=== PATIENT | male | born 1970 | race Caucasian/White ===

== ENCOUNTER 2021-07-09 07:59 | Outpatient (CLI) | payer BC, SELFPAY ==
[2021-07-09 12:10] LABS: Absolute Lymphocyte Count 1.75 X10^3/uL (0.83-4.51); Absolute Neutrophil Count 4.1 X10^3/uL (2.0-7.7); Basophil# 0.02 X10^3/uL; Basophil% 0.3 % (0-1); Eosinophil# 0.08 X10^3/uL; Eosinophils% 1.2 % (0-5); Hematocrit 45.9 % (40-54); Hemoglobin 15.4 g/dL (13.0-16.5); Lymphocyte # 1.75 X10^3/ul (0.83-4.51); Lymphocyte % 27.1 % (19-41); Mean Corp Hgb Conc 33.6 g/dL (32-36); Mean Corpuscular Hgb 29.7 pg (27.0-32.0); Mean Corpuscular Volume 88.4 fL (80-94); Monocyte% 7.8 % (0-10); NRBC Flagged by Analyzer 0 % (0-5); Neutrophil # 4.08 X10^3/uL (2.7-7.7); Neutrophil % 63.3 % (47-70); Platelet Count 284 K/mm3 (150-450); RBC Distribution Width SD 39.1 fl (35.1-43.9); Red Blood Count 5.19 M/mm3 (4.6-6.2); White Blood Count 6.5 K/mm3 (4.4-11.0)
[2021-07-09 12:28] LABS: Vitamin D,25 Hydroxy 22.4 ng/mL
[2021-07-09 12:30] LABS: Hemoglobin A1c 5.6 % (3.8-5.6)
[2021-07-09 12:41] LABS: ALB/GLOB Ratio 0.8 RATIO (0.9-2.4); AST(SGOT) 35 U/L (15-37); Alanine Aminotransfer ALT/SGPT 73 U/L (16-61); Albumin, Serum 3.9 g/dL (3.2-5.0); Alkaline Phosphatase 67 U/L (45-117); Anion Gap 6 (5-15); BUN 11 mg/dL (7-18); BUN/Creat Ratio 10.8 RATIO (10-20); Calcium,Total 9.2 mg/dL (8.5-10.1); Chloride 104 mmol/L (98-107); Cholesterol 200 mg/dL (200); Creatinine, Serum 1.02 mg/dL (0.70-1.30); EST Glomerular Filtration Rate 83 mL/min (>60); Est Glom Filt Rate - Afr Amer 100 mL/min (>60); Globulin 4.7 g/dL (2.2-4.2); Glucose 103 mg/dL (74-106); High Density Lipoprotein 40 mg/dL; Potassium 4.2 mmol/L (3.5-5.1); Protein, Total 8.6 g/dL (6.4-8.2); Sodium Level 135 mmol/L (136-145); Thyroid Stim Hormone (TSH) 0.82 uIU/mL (0.358-3.74); Triglycerides 197 mg/dL; Very Low Density Lipoprotein 39 mg/dL (5-40)
== END 2021-07-09 23:59 | disposition home or self-care (01) ==
LOC: BIMLAB 08:00
PROVIDERS: PCP Internal Medicine; Referring Provider Internal Medicine; Visit Provider Internal Medicine
DX: E55.9 Vitamin D deficiency, unspecified (principal); E66.3 Overweight; Z12.5 Encounter for screening for malignant neoplasm of prostate; Z13.220 Encounter for screening for lipoid disorders; Z13.1 Encounter for screening for diabetes mellitus
CPT/HCPCS: 36415; 80053; 80061; 82306; 83036; 84153; 84443; 85025; G0103

== ENCOUNTER 2021-07-13 12:55 | Outpatient (CLI) | payer BC, SELFPAY ==
--- NOTE | 2021-07-13 13:00 | ECHOCS_ITS ---
Reason For Study: Murmur Procedure This was a 2D Doppler, Color Flow transthoracic echocardiogram. Contrast injection was performed. Exam performed in department. Left Ventricle Normal LV size. Moderate concentric left ventricular hypertrophy. Left ventricular systolic function is normal. The estimated ejection fraction is 65 %. Stage 1 diastolic dysfunction. No regional wall motion abnormalities noted. Right Ventricle Normal RV size. Normal systolic function. Atria Normal left atrium. Normal right atrium. Mitral Valve Normal mitral valve. Tricuspid Valve Normal tricuspid valve. Mild tricuspid valve insufficiency. Aortic Valve Normal aortic valve. Pulmonic Valve Normal pulmonic valve. Great Vessels Normal aortic root. The pulmonary artery is normal size. Normal inferior vena cava. Pericardium/Pleural No pericardial effusion. Medication Diluted definity 2ml given slow IV push to enhance endocardial definition. MMode/2D Measurements & Calculations LVIDd: 3.7 cm IVSd: 1.4 cm Ao root diam: 3.6 cm LVIDs: 2.2 cm LVPWd: 1.4 cm RVDd: 3.8 cm FS: 41.2 % LAV(MOD-bp): 39.0 ml LVAd ap4: 27.5 cm2 SV(MOD-sp4): 53.1 ml LAV(MOD-bp) Indexed: 19.1 ml/m2 LVLd ap4: 7.9 cm LAV(MOD-sp2): 39.0 ml EDV(MOD-sp4): 77.2 ml LAV(MOD-sp4): 39.9 ml EDV(sp4-el): 81.0 ml LVAs ap4: 13.9 cm2 LVLs ap4: 7.0 cm ESV(MOD-sp4): 24.1 ml ESV(sp4-el): 23.5 ml EF(MOD-sp4): 68.8 % EF(sp4-el): 70.9 % SV(sp4-el): 57.4 ml LA A4 area: 15.4 cm2 LA dimension(2D): 4.0 cm RA A4 area: 10.5 cm2 Doppler Measurements & Calculations MV E max artemio: 58.7 cm/sec Lat Peak E' Artemio: 8.1 cm/sec Med Peak E' Artemio: 5.6 cm/sec MV A max artemio: 68.0 cm/sec E/E' lat: 7.3 E/E' med: 10.6 MV E/A: 0.86 Ao V2 max: 154.7 cm/sec LV V1 max: 149.1 cm/sec PA V2 max: 85.4 cm/sec Ao max P.6 mmHg LV V1 max P.9 mmHg Ao V2 mean: 103.0 cm/sec Ao mean P.8 mmHg Ao V2 VTI: 29.7 cm TR max artemio: 207.5 cm/sec TR max P.2 mmHg ECHO/Echo Complete W/ Contrast Interpretation Summary Normal LV size. Left ventricular systolic function is normal. The estimated ejection fraction is 65 %. Moderate concentric left ventricular hypertrophy. Stage 1 diastolic dysfunction. Mild tricuspid valve insufficiency. Contrast injection was performed. Ordering Physician: Katya Lara Referring Physician: Katya Lara Performed By: Rain English, BISI, RVT
== END 2021-07-13 23:59 | disposition home or self-care (01) ==
LOC: CVS 12:57
PROVIDERS: PCP Internal Medicine; Referring Provider Internal Medicine; Visit Provider Internal Medicine
DX: Q24.4 Congenital subaortic stenosis (principal)
CPT/HCPCS: 93306; Q9957; A4216; C8929

== ENCOUNTER → 2021-11-25 | Outpatient (CLI) | payer BC, SELFPAY ==
[2021-11-25 11:40] LABS: Bacteria 0 SEEN /hpf (None Seen); Mucous, Urine 0 SEEN /hpf (<or=2+); Red Blood Cells-Urine 0 SEEN /hpf (0-5); Squamous Epithelial Cells - UA 0 SEEN /hpf (0-5); White Blood Cells 0 SEEN /hpf (0-5)
[2021-11-25 13:35] LABS: HIV - WCH Non-Reactive (Nonreactive)
[2021-11-25 15:09] LABS: Color, Urine Yellow (Yellow); Glucose, Dipstick Normal (Normal); Ketone-Dipstick Negative (Negative); Leukocyte Esterase-Dipstick Negative /ul (Negative); Nitrite-Dipstick Negative (Negative); Occult Blood-Urine Negative /ul (Negative); Protein-Dipstick Negative (Negative); Specific Gravity, Urine 1.015 (1.002-1.030); Urine Bilirubin Dipstick Negative (Negative); Urine Clarity Clear (Clear); Urine Urobilinogen Normal (Normal); Urine pH 6.5 (5.0 - 8.0)
[2021-11-27 21:07] LABS: Chlamydia By Nucleic Acid AMP Negative (Negative)
[2021-11-28 07:45] LABS: Gonococcus By Nucleic Acid AMP Positive (Negative)
== END | disposition home or self-care (01) ==
LOC: BIMLAB 11:38
PROVIDERS: PCP Internal Medicine; Referring Provider Physician Assistant; Visit Provider Physician Assistant
DX: R36.9 Urethral discharge, unspecified (principal); R30.0 Dysuria; Z11.3 Encounter for screening for infections with a predominantly sexual mode of transmission
CPT/HCPCS: 36415; 81001; 86703; 87086; 87491; 87591

== ENCOUNTER → 2023-10-04 | Outpatient (CLI) | payer BC, SELFPAY ==
[2023-10-04 11:58] LABS: Absolute Lymphocyte Count 1.48 X10^3/uL (0.83-4.51); Absolute Neutrophil Count 2.8 X10^3/uL (2.0-7.7); Basophil# 0.03 X10^3/uL; Basophil% 0.6 % (0-1); Eosinophil# 0.15 X10^3/uL; Eosinophils% 3.1 % (0-5); Hematocrit 43.5 % (40-54); Hemoglobin 14.4 g/dL (13.0-16.5); Lymphocyte # 1.48 X10^3/ul (0.83-4.51); Lymphocyte % 30.2 % (19-41); Mean Corp Hgb Conc 33.1 g/dL (32-36); Mean Corpuscular Hgb 29.1 pg (27.0-32.0); Mean Corpuscular Volume 87.9 fL (80-94); Mean Platelet Vol. 11.3 fl (6.2-12.0); Monocyte% 8.2 % (0-10); NRBC Flagged by Analyzer 0 % (0-5); Neutrophil # 2.82 X10^3/uL (2.7-7.7); Neutrophil % 57.5 % (47-70); Platelet Count 236 K/mm3 (150-450); RBC Distribution Width SD 42.1 fl (35.1-43.9); Red Blood Count 4.95 M/mm3 (4.6-6.2); White Blood Count 4.9 K/mm3 (4.4-11.0)
[2023-10-04 12:24] LABS: Hemoglobin A1c 5.6 % (3.8-5.6)
[2023-10-04 12:49] LABS: ALB/GLOB Ratio 0.8 RATIO (0.9-2.4); AST(SGOT) 35 U/L (15-37); Alanine Aminotransfer ALT/SGPT 56 U/L (16-61); Albumin, Serum 3.7 g/dL (3.2-5.0); Alkaline Phosphatase 60 U/L (45-117); Anion Gap 9 (5-15); BUN 14 mg/dL (7-18); Calcium,Total 9.1 mg/dL (8.5-10.1); Chloride 104 mmol/L (98-107); Cholesterol 199 mg/dL (200); EST Glomerular Filtration Rate 84 mL/min (>60); Est Glom Filt Rate - Afr Amer 101 mL/min (>60); Globulin 4.5 g/dL (2.2-4.2); Glucose 103 mg/dL (74-106); High Density Lipoprotein 49 mg/dL; PSA,Total - Annual Screen 0.54 ng/mL (0.00-4.00); Potassium 4.1 mmol/L (3.5-5.1); Protein, Total 8.2 g/dL (6.4-8.2); Sodium Level 136 mmol/L (136-145); Thyroid Stim Hormone (TSH) 0.69 uIU/mL (0.358-3.74); Triglycerides 102 mg/dL; Very Low Density Lipoprotein 20 mg/dL (5-40)
[2023-10-05 21:07] LABS: Insulin Level 20.2 uIU/mL (2.6-24.9)
== END | disposition home or self-care (01) ==
LOC: BIMLAB 09:11
PROVIDERS: PCP Internal Medicine; Referring Provider Internal Medicine; Visit Provider Internal Medicine
DX: Z00.00 Encounter for general adult medical examination without abnormal findings (principal); E55.9 Vitamin D deficiency, unspecified; R73.9 Hyperglycemia, unspecified; E66.3 Overweight; Z12.5 Encounter for screening for malignant neoplasm of prostate
CPT/HCPCS: 36415; 80053; 80061; 82306; 83036; 83525; 84153; 84443; 85025; G0103

== ENCOUNTER → 2024-11-01 | Outpatient (CLI) | payer BC, SELFPAY ==
--- NOTE | 2024-11-01 10:34 | STEWCON_ITS ---
Reason For Study Reason For Study: Dyspnea On Exertion Stress Results Protocol: Vincent Protocol WITH DEFINITY Maximum Predicted HR: 169 bpm Target HR: 144 bpm % Maximum Predicted HR: 98 % DurationHeart Rate Stage (mm:ss) (bpm) BP Comment Baseline 76 134/90No Chest Pain; 3 ML Diluted Definity Vincent Protocol Stage I 3:00 131 138/84No Chest Pain Vincent Protocol Stage II 3:00 148 158/80No Chest Pain; Mild Dyspnea Vincent Protocol Stage III 3:00 166 170/78No Chest Pain; Moderate Dyspnea Recovery 104 148/80No Chest Pain; No Dyspnea Stress Duration: 9:00 mm:ss Maximum Stress HR: 166 bpm METS: 10 Baseline Echocardiogram Findings Stress Echo Wall motion Data Resting WM Intermediate WM Stress WM ECHO/Stress Test Echo W/Contrast Interpretation Summary Exercise stress echo. 53-year-old male with a history of hypertension. Rest EKG demonstrates normal sinus rhythm with a rate of 77 bpm T wave inversio ns noted in lead I and aVL. Resting blood pressure is 134/80 mmHg. Patient exercised according to regular Vincent protocol for total duration of 9 minutes the maximum heart rate attained was 169 bpm which was 100% max impacted heart rate the maximum workload was 10.4 metabolic equivalents. At rest there were no ST or T wave changes noted suggest ischemia. At peak exercise there was approximately [address] depression noted in lead III and V6 suggestive but not di agnostic of ischemia. In the immediate post recovery. These changes became more upright. No chest pain was noted mild to moderate dyspnea was noted. The peak blood pressure was 170/78 which was a good blood pressure response to exercise. Stress echocardiogram. Resting and stress echocardiogram were performed with Definity enhancement. The estimated ejection fraction was 65% at rest increasing to 75% with thickening of all leo and reduction in left ventr icular contractility. No new wall motion abnormalities were noted suggest ischemia. Conclusion: Exercise stress echo with Definity enhancement with no evidence of ischemia at a high workload. Nondiagnostic EKG changes noted. No angina present. Ordering Physician: Douglas Vo Referring Physician: Douglas Vo Performed By: Karla Rae, BISI, RVT
== END | disposition home or self-care (01) ==
LOC: CVS 10:32
PROVIDERS: PCP Internal Medicine; Referring Provider Internal Medicine Cardiovascular Disease; Visit Provider Internal Medicine Cardiovascular Disease
DX: R94.31 Abnormal electrocardiogram [ECG] [EKG] (principal)
CPT/HCPCS: 93017; 93350; Q9957; A4216; C8928

== ENCOUNTER → 2024-11-05 | Outpatient (CLI) | payer BC, SELFPAY ==
--- NOTE | 2024-11-05 08:01 | ECHOCS_ITS ---
Reason For Study Reason For Study: Dyspnea/SOB Procedure This was a 2D Doppler, Color Flow transthoracic echocardiogram. The study was technically difficult. Contrast injection was performed. Exam performed in department. Left Ventricle Normal LV size. Severe concentric left ventricular hypertrophy. Left ventricular systolic function is hyperdynamic. The estimated ejection fraction is 80 %. Resting LV gradient 10 mmHg. Valsalva LV gradient 75 mmHg. No regional wall motion abnormalities noted. Right Ventricle Normal RV size. Normal systolic function. Atria Normal left atrium. Normal right atrium. Mitral Valve Normal mitral valve. Systolic anterior motion of the mitral valve. Mild (1+) eccentric mitral valve insufficiency. Tricuspid Valve Normal tricuspid valve. Aortic Valve Trisinus/trileaflet aortic valve. Pulmonic Valve The pulmonic valve is not well visualized. Great Vessels Normal aortic root. The pulmonary artery is normal size. Inferior vena cava collapse with respiration. Pericardium/Pleural No pericardial effusion. Medication 22 gauge I.V. with prn adaptor inserted into right arm. Diluted definity 2ml given slow IV push to enhance endocardial definition. MMode/2D Measurements & Calculations LVIDd: 4.0 cm IVSd: 1.6 cm Ao root diam: 3.9 cm LVIDs: 2.1 cm LVPWd: 1.8 cm RVDd: 3.7 cm FS: 46.6 % LAV(MOD-bp): 55.8 ml LVAd ap4: 35.9 cm2 SV(MOD-sp4): 93.1 ml LAV(MOD-bp) Indexed: 26.7 ml/m2 LVLd ap4: 9.6 cm SI(MOD-sp4): 44.6 ml/m2 LAV(MOD-sp2): 54.8 ml EDV(MOD-sp4): 107.8 ml LAV(MOD-sp4): 50.7 ml EDV(sp4-el): 113.6 ml LVAs ap4: 10.8 cm2 LVLs ap4: 7.5 cm ESV(MOD-sp4): 14.7 ml ESV(sp4-el): 13.3 ml EF(MOD-sp4): 86.4 % EF(sp4-el): 88.3 % SV(sp4-el): 100.4 ml LA A4 area: 19.0 cm2 LA dimension(2D): 4.4 cm TAPSE: 2.5 cm Time Measurements MV dec time: 0.26 sec Doppler Measurements & Calculations MV E max artemio: 78.7 cm/sec Lat Peak E' Artemio: 6.5 cm/sec Med Peak E' Artemio: 6.5 cm/sec MV A max artemio: 75.5 cm/sec E/E' lat: 12.2 E/E' med: 12.2 MV E/A: 1.0 MV V2 max: 113.6 cm/sec MV P1/2t max artemio: 115.5 cm/sec Ao V2 max: 170.3 cm/sec MV max P.2 mmHg MV P1/2t: 90.6 msec Ao max P.6 mmHg MV V2 mean: 54.0 cm/sec Ao V2 mean: 130.8 cm/sec MV mean P.5 mmHg MV dec slope: 373.5 cm/sec2 Ao mean P.5 mmHg MV V2 VTI: 32.8 cm MVA(P1/2t): 2.4 cm2 Ao V2 VTI: 34.8 cm LV V1 max: 137.4 cm/sec PA V2 max: 77.6 cm/sec LV V1 max P.6 mmHg ECHO/Echo Complete W/ Contrast Interpretation Summary Normal LV size. Left ventricular systolic function is hyperdynamic. The estimated ejection fraction is 80 %. Mild (1+) eccentric mitral valve insufficiency. Resting LV gradient 10 mmHg. Valsalva LV gradient 75 mmHg. Severe concentric left ventricular hypertrophy. Systolic anterior motion of the mitral valve. Ordering Physician: Douglas Vo Referring Physician: Douglas Vo Performed By: Tim Joshi RCS
--- OUTSIDE RECORDS SUMMARY | 2024-11-05 08:37 | XMS RPT_ITS | CCD ---
Author Organization [facility] Care Team Providers Care Transit Department Clerk Name Role Phone Dr. Katya Lara Attending Provider [phone] KARIME Soto Attending Provider Dr. Parvez Gates Attending Provider [phone] Dr. Katya Lara Primary Care Provider Dr. Katya Lara Primary Care Provider Dr. Katya Lara Referring Provider [phone] KARIME Dee Attending Provider Unavailab hay Lara MD, Dr. Aldana Primary Care Provider [phone] Dr. Katya Lara MD Attending Provider Dr. Katya Lara MD Referring Provider Dr. Douglas Vo MD Attending Provider Katya Lara Attending Unavailable Katya Lara Primary Care Unavailable Katya Lara Primary Care Unavailable Katya Lara Referring Unavailable Douglas Vo Attending Unavailable Katya Lara Attending Unavailable Katya Lara Primary Care Unavailable Katya Lara Primary Care Unavailable Parvez Gates Attending Unavailable Katya Lara Attending Unavailable Katya Lara Primary Care Unavailable Douglas Vo Attending Unavailable Katya Lara Primary Care Unavailable Douglas Vo Referring Unavailable Katya Lara Primary Care Unavailable Douglas Vo Referring Unavailable Douglas Vo Attending Unavailable Medications Current Medications Medication Drug Class(es) Dates Sig (Normalized) Sig (Original) aspirin 81 mg oral tablet (1 source) Platelet Aggregation Inhibitor, Nonsteroidal Anti-inflammatory Drug Start: 10-01-2024 take 1 tablet by mouth once daily Aspirin 81 mg tablet Active 81 mg PO daily 90 3 October 01, 2024 12:00am hydroCHLOROthiazide 12.5 mg / losartan potassium 50 mg oral tablet (4 sources) Thiazide Diuretic, Angiotensin [address] Start: 02-29-2024 End: 06-26-2024 Losartan-Hydroc hlorothiazide 50-12.5 mg tablet Active 1 {tbl} PO daily 90 3 June 26, 2024 10:16am metoprolol tartrate 25 mg oral tablet (2 sources) beta-Adrenergic Ct Start: 10-01-2024 Metoprolol Tartrate 25 mg tablet Active 12.5 mg PO daily 90 0 October 01, 2024 12:00am Completed/Discontinued Medications Medication Drug Class(es) Dates Sig (Normalized) Sig (Original) cefixime 400 mg oral capsule (3 sources) Cephalosporin Antibacterial Start: 11-30-2021 End: 07-05-2022 take 1 capsule by mouth once daily Cefixime 400 mg capsule Discontinued 800 mg PO DAILY 2 0 November 30, 2021 12:00am July 05, 2022 9:28am Start: 11-30-2021 take 800 mg by mouth once roselia y Cefixime Active 800 MG PO DAILY 2 November 30, 2021 12:00am hydroCHLOROthiazide 12.5 mg / lisinopril 10 mg oral tablet (4 sources) Thiazide Diuretic, Angiotensin Converting Enzyme Inhibitor Start: 09-26-2023 End: 02-29-2024 Lisinopril-Hydrochlorothiazi de 10-12.5 mg tablet Discontinued 1 {tbl} PO DAILY 90 1 December 28, 2023 10:14am February 29, 2024 9:30am imiquimod 50 mg/ml topical cream (12 sources) Start: 06-16-2021 End: 09-26-2023 Imiquimod 5 % cream in packe t Discontinued 1 NMA TOPICAL .COMPLEX as needed July 05, 2022 9:28am September 26, 2023 1:09pm 1 applic topically Three times weekly; PRN; triamcinolone acetonide 1 mg/ml topical cream (4 sources) Corticosteroid Start: 09-26-2023 End: 10-01-2024 Triamcinolone Acetonide 0.1 % cream Discontinued 1 NMA TOPICAL TWICE A DAY as needed November 16, 2023 8:04am October 01, 2024 8:31am Apply thin layer to the affected areas, twice daily x 10 to 14 days. Problems Active Problems Problem Classification Problem Date Documented Date Episodic/Chronic Cardiac and circulatory congenital anomalies (5 sources) Subaortic stenosis; Translations: [Congenital subaortic stenosis] Chronic Essential hypertension (4 sources) Hypertensive disorder; Translations: [Essential (primary) hypertension] Onset: 5 09-26-2023 Chronic Genitourinary symptoms and ill-defined conditions (2 sources) Urethral discharge, unspecified; Translations: [Urethral discharge] Episodic Immunizations and screening for infectious disease (1 source) Encounter for screening for infections with a predominantly sexual mode of transmission; Translations: [Screening examination for venereal disease] Episodic Nutritional deficiencies (6 sources) Vitamin D deficiency; Translations: [Vitamin D deficiency, unspecified] Onset: Chronic Other lower respiratory disease (4 sources) Dyspnea on exertion; Translations: [Other forms of dyspnea] 10-01-2024 Episodic Other lower respiratory disease (2 sources) Other forms of dyspnea; Translations: [Other forms of dyspnea] Onset: 5 Episodic Other non-traumatic joint disorders (6 sources) Pain in right knee; Translations: [Right knee pain] Episodic Other nutritional; endocrine; and metabolic disorders (4 sources) Overweight; Translations: [Overweight] 06-16-2021 Episodic Other screening for suspected conditions (not mental disorders or infectious disease) (5 sources) Electrocardiogram abnormal; Translations: [Abnormal electrocardiogram [ECG] [EKG]] Onset: 5 10-01-2024 Episodic Other skin disorders (2 sources) Eruption; Translations: [Rash and other nonspecific skin eruption] 09-26-2023 Episodic Unclassified (1 source) Abnormal electrocardiography Unclassified (1 source) R06.09 - Other forms of dyspnea,R94.31 - Abnormal electrocardiogram [ECG] [EKG],I10 - Essential (primary) hypertension Viral infection (4 sources) Genital warts; Translations: [Anogenital (venereal) warts] Episodic Past or Other Problems Problem Classification Problem Date Documented Da te Episodic/Chronic Other nutritional; endocrine; and metabolic disorders (2 sources) Overweight; Translations: [Overweight] Onset: 02-29-2024 Episodic Results Test Name Value Interpretation Reference Range Facil ity Stress Test Echo W/Contrasto n 11-01-2024 Stress Test Echo W/Contrast [facility] [address] [place] [address] Stress Test Echo W/Contrast MR#: [id number] Acct: [id number] Name: MALLIKA JEREZ Rep #: [id number] : 1970 53 From: Parvez Gates MD Primary Care: Dr. Katya Lara MD Status: REG CLI Ordering Dr: Douglas Vo MD Sex: M C Reason For Study Reason For Study: Dyspnea On Exertion Stress Results Protocol: Vincent Protocol WITH DEFINITY Maximum Predicted HR: 169 bpm Target HR: 144 bpm % Maximum Predicted HR: 98 % DurationHeart Rate Stage (mm:ss) (bpm) BP Comment Baseline 76 134/90No Chest Pain; 3 ML Diluted Definity Vincent Protocol Stage I 3:00 131 138/84No Chest Pain Vincent Protocol Stage II 3:00 148 158/80No Chest Pain; Mild Dyspnea Vincent Protocol Stage III 3:00 166 170/78No Chest Pain; Moderate Dyspnea Recovery 104 148/80No Chest Pain; No Dyspnea Stress Duration: 9:00 mm:ss Maximum Stress HR: 166 bpm METS: 10 Baseline Echocardiogram Findings Stress Echo Wall motion Data Resting WM Intermediate WM Stress WM ECHO/Stress Test Echo W/Contrast Interpretation Summary Exercise stress echo. 53-year-old male with a history of hypertension. Rest EKG demonstrates normal sinus rhythm with a rate of 77 bpm T wave inversions noted in lead I and aVL. Resting blood pressure is 134/80 mmHg. Patient exercised according to regular Vincent protocol for total duration of 9 minutes the maximum heart rate attained was 169 bpm which was 100% max impacted heart rate the maximum workload was 10.4 metabolic equivalents. At rest there were no ST or T wave changes noted suggest ischemia. At peak exercise there was approximately [address] depression noted in lead III and V6 suggestive but not diagnostic of ischemia. In the immediate post recovery. These changes became more upright. No chest pain was noted mild to moderate dyspnea was noted. The peak blood pressure was 170/78 which was a good blood pressure response to exercise. Stress echocardiogram. Resting and stress echocardiogram were performed with Definity enhancement. The estimated ejection fraction was 65% at rest increasing to 75% with thickening of all leo and reduction in left ventricular contractility. No new wall motion abnormalities were noted suggest ischemia. Conclusion: Exercise stress echo with Definity enhancement with no evidence of ischemia at a high workload. Nondiagnostic EKG changes noted. No angina present. Ordering Physician: Douglas Vo Referring Physician: Douglas Vo Performed By: Karla Rae, BISI, RVT 11/01/24 1256 Date Parvez Gates MD CC: Dr. Katya Lara MD; Dr. Douglas Vo MD Date Dictated: 11/01/24 1056 Date Transcribed: 11/01/24 125 Celery Stripper: Signed [facility] Cardiology Visit Reporton Cardiology Visit Report [facility] [address] [place] [address] OFFICE VISIT Date of Service: 10/02/24 MR#: [id number] Acct: [id number] Name: MALLIKA JEREZ Rep #: [id number] : 1970 Provider: Dr. Douglas elliott MD Age/Sex: 53/M Location: [facility] Status: Signed HPI HPI History of Present Illness Details: Patient is a pleasant 53-year-old white male comes in today for new patient visit. Patient was evaluated by his primary care physician yesterday. He was complaining of some dyspnea on exertion and lightheaded episodes that actually started about 2 years ago but did become progressively more prominent. This occurs when he first starts to exercise such as playing tennis he gets short of breath and lightheaded. He also gets it carrying groceries up the stairs and he did have 1 episode about 5 years ago when he passed out. At that time the patient was not having any dyspnea on exertion. The patient denies any specific chest pains however the symptoms are exertional and he can work through them at times other times he sits and rests and it resolves and he is able to continue with his activity. The patient carries a history of hyperlipidemia and hypertension there is no family history of sudden cardiac or early coronary disease he is not a smoker and he is not diabetic. The patient's ECG done 10/01/2024 showed sinus rhythm at 73 bpm with left atrial enlargement nonspecific ST and T wave changes with significant T wave inversions in the anterior lateral leads possibly consistent with ischemia or LVH. The patient does have a longstanding history of hypertension and his echocardiogram done July 2021 showed moderate concentric LVH with an EF of 65% and stage I diastolic dysfunction with mild TR. Currently the patient is asymptomatic unless he is trying to exercise. He denies any syncope or near syncope. He denies any significant lower extremity edema. He does not report any PND orthopnea or shortness of breath at rest. Intake Vital Signs 10/01/24 08:35 10/02/24 08:46 Height 5 ft 7 in 5 ft 7 in Weight: 217 lb 4 oz 216 lb BMI 34.0 33.8 BP 123/84 H 133/90 H Blood Pressure Location Rt brachial Lt brachial Position Sitting Sitting Respiration 16 18 Pulse 77 79 Pulse Source Monitor Monitor Temp 98.6 F Pulse Oximetry (%) 92 93 Oxygen Delivery Method room air room air Intake Visit Reasons: CP on Exertion (Marco) Appliance Fixer Required: No Accompanied by: Self Is patient in pain?: No Allergies No Known Allergies Allergy (Verified 10/02/24 08:46) Medications ???Medication ???Instructions ???Recorded ???Confirmed ???Type losartan 50 mg-hydrochlorothiazi de 1 tab PO QDAY #90 tabs 06/26/24 10/02/24 Rx 12.5 mg tablet aspirin 81 mg tablet 81 mg PO QDAY #90 tabs 10/01/24 Rx metoprolol tartrate 25 mg tablet 12.5 mg (1/2 x 25 mg) PO QDAY #90 10/01/24 10/01/24 Rx tabs Have you fallen in the past year?: No PFSH Medical History Abnormal EKG Dyspnea on exertion Hypertension Skin rash Leg fracture Surgical History History of surgery on lower extremity Family History Other Cancer Social History Smoking Status: Never smoker alcohol intake: current alcohol intake frequency: holidays/special occasions only substance use type: does not use caffeine: Yes ROS Const Const: Positive for fatigue; Negative for weakness ENT ENT: Negative for dizziness or balance problems Cardio Chest Pain: No Palpitations: No Edema: None Muscle aches with walking: None Resp Respiratory: Positive for SOB with activity; Negative for SOB at rest or SOB orthopnea SOB lying down GI GI: Positive for heartburn (minimal); Negative nausea or vomiting Musc Musc: Negative for muscle weakness or balance problems Neuro Neuro: Positive for lightheadedness; Negative for dizziness, near syncope, syncope or weakness Endo Endo: Positive for fatigue Cardiology Exam Const Appearance: cooperative, comfortable and no acute distress Nutritional Appearance: overweight Head Head: normal to inspection Eyes General: appearance normal, both eyes and all related structures Neck Neck: normal visual inspection and no JVD Carotids: Negative bruit Chest Chest inspection: normal inspection of the chest Auscultation: Bilateral: Clear to Auscultation Cardio Rate: regular rate Rhythm: regular rhythm Heart sounds: S1 normal, S2 normal and murmur; Negative rub or gallop Murmur: Grade 2/6, mid systolic, LLSB and sternal notch GI GI: normal to i (more content not included)... [facility] MR/BMS.[facility] 10-01-2024 MR/BMS.[facility] [address] [place] [address] OFFICE VISIT Date of Service: 10/01/24 MR#: [id number] Acct: [id number] Name: MALLIKA JEREZ Rep #: [id number] : 1970 Provider: Dr. Katya gonzales MD Age/Sex: 53/M Location: [facility] Status: Signed Intake Vital Signs 02/29/24 08:06 09/28/24 09:38 10/01/24 08:35 Height 5 ft 7 in 5 ft 7 in 5 ft 7 in Weight: 212 lb 2 oz 217 lb 4 oz BMI 33.2 34.0 BP 140/92 H 123/84 H Blood Pressure Location Lt brachial Rt brachial Position Sitting Sitting Respiration 16 16 Pulse 80 77 Pulse Source Monitor Monitor Temp 97.8 F 98.6 F Temp Source Temporal Temporal Pulse Oximetry (%) 93 92 Oxygen Delivery Method room air room air Intake Visit Reasons: Annual/Physical Chief Complaint: Annual/Physical Appliance Fixer Required: No Accompanied by: Self Is patient in pain?: No Allergies No Known Allergies Allergy (Verified 10/01/24 08:28) Medications ???Medication ???Instructions ???Recorded ???Confirmed ???Type losartan 50 mg-hydrochlorothiazi de 1 tab PO QDAY #90 tabs 06/26/24 10/01/24 Rx 12.5 mg tablet aspirin 81 mg tablet 81 mg PO QDAY #90 tabs 10/01/24 Rx metoprolol tartrate 25 mg tablet 12.5 mg (1/2 x 25 mg) PO QDAY #90 10/01/24 10/01/24 Rx tabs PFSH Medical History (Updated 10/01/24 @ 09:[address] Katya Lara MD) Abnormal EKG Dyspnea on exertion Hypertension Skin rash Leg fracture Family History Other Cancer Social History Smoking Status: Never smoker alcohol intake: current alcohol intake frequency: holidays/special occasions only substance use type: does not use HPI HPI Chief Complaint: Annual/Physical Details: MALLIKA JEREZ, is a 53 M who presents to the office today for annual follow-up. 53-year-old gentleman who has a history of hypertension that has been pretty well-controlled with his losartan???HCTZ 50- 12.5 mg once daily. Other than that he has no longstanding medical problems and takes no routine long-term medications. He however wanted to make us aware, that over the last year, he has noted some sense of exertional dyspnea. He first noticed this again some more approximately a year earlier, where he would get winded with certain degrees of activity, which seems to be getting less he states. He also notes more frequent episodes per se. He tries to maintain a reasonable level of activity, playing tennis, singles, perhaps a couple of days a week. He will have to stop at times due to dyspnea which she had not had to do in the past. In addition, he tries to golf, and if walking any distance, particularly on hills, he will need to stop fairly frequently to catch his breath. A flight of steps now would lead to dyspnea he states, particularly if carrying something such as groceries. He does not get chest pain, chest tightness. He has no cough or congestion. He notes no wheezing. He is a lifelong non-smoker. He does not have abnormal cholesterol, with total cholesterol last year under 200, LDL 130 and HDL 49. Several years ago, he was noted on exam to have a systolic murmur that was clinically suspicious for possible subaortic stenosis which was not confirmed on echo. He did mild concentric LVH, consistent with hypertension, probably somewhat longer-term but prior to 2020 he was not following with anyone and was not checking. Again since being on medical regimen he has been fairly stable in that regards. Review of systems per chart. Again no chest pain, chest tightness at any point but exertional dyspnea that is progressive. Appetites been good. He has gained some weight unfortunately since the last visit. He states again trying to limit that has been difficult because of the exertional dyspnea where he cannot do as much physical activity he states. He has no nausea or vomiting. Bowel movements have been regular. No dysuria, urgency or frequency. No frequent headaches, double vision, blurry vision. No other new specific concerns. He still has some dry skin, bilateral ears, left greater than right. Physical exam. Vital signs on chart. PERRLA. Sclera are clear. TMs are unremarkable with normal light reflexes. Canals are unremarkable. Dry scaly skin, external auditory canal left l. Fish Tender ior pharynx is unremarkable. Good dentition. No cervical or supraclavicular lymph nodes enlarged or tender. No clear thyromegaly. No thyroid nodules readily palpable. Lungs are without wheeze, rhonchi, rales. No E/A changes are heard. Heart is regular. Not tachycardic. No clear murmur, rub, or gallop is identified. The abdomen is soft, protuberant. Bowel sounds are present. Nontender nondistended abdomen. No clear palpable masses in the abdomen. (more content not included)... [facility] MR[facility] 02-29-2024 MR/BMS.B [facility] [address] [place] [address] OFFICE VISIT Date of Service: 02/29/24 MR#: [id number] Acct: [id number] Name: MALLIKA JEREZ Rep #: [id number] : 1970 Provider: Dr. Katya gonzales MD Age/Sex: 53/M Location: [facility] Status: Signed Intake Vital Signs 11/16/23 08:06 02/29/24 08:06 Height 5 ft 7 in 5 ft 7 in Weight: 207 lb 212 lb 2 oz BMI 32.4 33.2 BP 131/90 H 140/92 H Blood Pressure Location Lt brachial Lt brachial Position Sitting Sitting Respiration 16 16 Pulse 76 80 Pulse Source Monitor Monitor Temp 98.2 F 97.8 F Temp Source Temporal Temporal Pulse Oximetry (%) 93 93 Oxygen Delivery Method room air room air Intake Visit Reasons: 3 M FU Chief Complaint: 3 m fu Appliance Fixer Required: No Accompanied by: Self Is patient in pain?: No Allergies No Known Allergies Allergy (Verified 02/29/24 08:03) Medications ???Medication ???Instructions ???Recorded ???Confirmed ???Type triamcinolone acetonide 0.1 % 1 applic topical BID PRN 11/16/23 02/29/24 History topical cream losartan 50 mg-hydrochlorothiazi de 1 tab PO QDAY #90 tabs 02/29/24 02/29/24 Rx 12.5 mg tablet PFSH Medical History Hypertension Skin rash Leg fracture Family History Other Cancer Social History Smoking Status: Never smoker alcohol intake: current alcohol intake frequency: holidays/special occasions only substance use type: does not use HPI HPI Chief Complaint: 3 m fu Details: MALLIKA JEREZ, is a 53 M who presents to the office today for short-term follow-up. 53-year-old gentleman who has a history of hypertension. At her last visit we discussed he was having some very mild dry cough on lisinopril???HCTZ 10???12.5. We also discussed the possibility of needing additional adjustment in his medication. He returns today. He did not bring blood pressure readings send but does note that they are similar to what we are getting here in the office today which is 140/92. He states the diastolics are typically towards that range, sometimes a little higher. He is not having any untoward symptoms. I have asked him to monitor blood pressures at home on a regular basis, write them down. Sheets were given today once again. He has been still gradually making good improvements in his diet. He is getting some regular fresh fruits and vegetables which in the past he was not doing very good with. He is cutting down somew hat on portion size. He is playing tennis and plans to do so throughout the winter this year indoors. He knows the need for having a regular regimented activity of some type and this is reasonable. Review of systems per chart. Not having chest pain, chest tightness or shortness of breath. No focal areas of numbness or tingling. Physical exam. Vital signs on chart. PERRLA. Sclera are clear. TMs are unremarkable with normal light reflexes. Canals are unremarkable. Posterior pharynx is unremarkable. Good dentition. No cervical or supraclavicular lymph nodes enlarged or tender. No clear thyromegaly. No thyroid nodules readily palpable. Lungs are without wheeze, rhonchi, rales. No E/A changes are heard. Heart is regular. Not tachycardic. No clear murmur, rub, or gallop is identified. The abdomen is soft. Bowel sounds are present. No significant leg edema. Cranial nerve examination 2 through 12 are grossly unremarkable nonlateralizing. ROS Const Constitutional: No body ache, chills, excessive sweating, fatigue, fever(s), frequent falls, headache(s), snoring, weakness or change in appetite Eyes Eyes: No blurry vision, change in vision, eye pain or Light sensitivity ENT ENT: No abnormal hearing, ear or mastoid pain, tinnitus, nasal congestion, headache(s), neck pain or sore throat Resp Respiratory: No cough, shortness of breath, snoring or wheezing Cardio Cardiology: No chest pain at rest, chest pain with exertion, excessive sweating, dyspnea on exertion, lightheadedness, orthopnea or palpitations Gastro GI: No abdominal pain, change in bowel habits, constipation, cramping, diarrhea, nausea/dyspepsia or vomiting Genitourinary Male: No burning urination, painful urination, urinary incontinence or urinary frequency Musc Musculoskeletal: No abnormal gait, joint pain, back pain, limited range of motion, muscle weakness, neck pain or numbness Skin Skin: No dry skin, redness, lesions, itchy eyes, rash or wounds Neuro Neurology: No abnormal gait, abnormal hearing, weakness, frequent falls, headache(s), memory loss or numbness Psych Psychiatric: No anxiety, No change in appetite, No depression, No memory loss and No Thoughts of harming yo (more content not included)... [facility] 11-16-2023 MR/BMS.[facility] [address] [place] [address] OFFICE VISIT Date of Service: 11/16/23 MR#: [id number] Acct: [id number] Name: MALLIKA JEREZ Rep #: [id number] : 1970 Provider: Dr. Katya gonzales MD Age/Sex: 53/M Location: [facility] Status: Signed Intake Vital Signs 09/26/23 13:07 11/16/23 08:06 Height 5 ft 7 in 5 ft 7 in Weight: 204 lb 2 oz 207 lb BMI 31.9 32.4 BP 167/104 H 131/90 H Blood Pressure Location Lt brachial Lt brachial Position Sitting Sitting Respiration 16 16 Pulse 74 76 Pulse Source Monitor Monitor Temp 98.6 F 98.2 F Temp Source Temporal Temporal Pulse Oximetry (%) 98 93 Oxygen Delivery Method room air room air Intake Visit Reasons: FOLLOW UP Accompanied by: Self Is patient in pain?: No Allergies No Known Allergies Allergy (Verified 11/16/23 08:04) Medications ???Medication ???Instructions ???Recorded ???Confirmed ???Type lisinopril 10 1 tab PO DAILY #90 tabs 09/26/23 11/16/23 Rx mg-hydrochlorothiazi de 12.5 mg tablet triamcinolone acetonide 0.1 % 1 applic topical BID PRN 11/16/23 History topical cream PFSH Medical History Hypertension Skin rash Leg fracture Family History Other Cancer Social History Smoking Status: Never smoker alcohol intake: current alcohol intake frequency: holidays/special occasions only substance use type: does not use HPI HPI Details: MALLIKA JEREZ, is a 53 M who presents to the office today for hypertension follow-up. 53-year-old gentleman who was relatively recently started on lisinopril???HCTZ for elevated blood pressures. He h ad been gaining some weight and that contributed. He started on HCTZ and lisinopril. He does have a mild dry cough that he did not connect the dots initially with but it may have started when he started on the medication. It is not overly bothersome at this point in time. He has no other new concerning issues. The rash behind the ear did clear up with triamcinolone but it recurred. We discussed using it as needed from here on out. Review of systems per chart. Physical exam. Vital signs on chart. I have not performed any significant physical examination today. Today was a follow-up on dietary nutritional counseling, blood pressure management. The rash behind the left ear, dry, scaly, small patch, not overtly bothersome appearing. ROS Const Constitutional: No body ache, chills, excessive sweating, fatigue, fever(s), frequent falls, headache(s), snoring, weakness or change in appetite Eyes Eyes: No blurry vision, change in vision, eye pain or Light sensitivity ENT ENT: No abnormal hearing, ear or mastoid pain, tinnitus, nasal congestion, headache(s), neck pain or sore throat Resp Respiratory: Positive for cough and shortness of breath sob: SOB with activity; No chest congestion, snoring or wheezing Cardio Cardiology: No chest pain at rest, chest pain with exertion, excessive sweating, dyspnea on exertion, lightheadedness, orthopnea or palpitations Gastro GI: No abdominal pain, change in bowel habits, constipation, cramping, diarrhea, nausea/dyspepsia or vomiting Genitourinary Male: No burning urination, painful urination, urinary incontinence or urinary frequency Musc Musculoskeletal: No abnormal gait, joint pain, back pain, limited range of motion, muscle weakness, neck pain or numbness Skin Skin: Positive for rash; No dry skin, redness, lesions, itchy eyes or wounds Neuro Neurology: No abnormal gait, abnormal hearing, weakness, frequent falls, headache(s), memory loss or numbness Psych Psychiatric: No anxiety, No change in appetite, No depression, No memory loss and No Thoughts of harming yourself/Others Endo Endocrine: No cold intolerance, excessive sweating, fatigue, flushing, heat intolerance, increased thirst/drinking or increased hunger Aller/Imm Allergy/Immunologic: No itchy eyes, seasonal allergy symptoms, hives or wheezing Mioses/Lymp Hematologic/Lymphati c: No easy bleeding or easy bruising Coding Level of Care Code Off vis,est,level 3 Diagnoses Hypertension I10 Skin rash R21 Time Spent (min) 30 Assessment and Plan Assessment and Plan (1) Hypertension: Status: Chronic (2) Skin rash: Status: Acute Plan Details Additional Comments: Patient presented today in 2-month follow-up. Hypertension. Recently started on lisinopril???HCTZ. He does have a mild dry cough, that is not overly bothersome. He did not connect the dots but he believes it may have actually started around the time of starting the medication. At this point we discussed switching however he states it is really not that bothersome a (more content not included)... Normal [facility] Basophil percentageon 2021 Basophil percentage 0 SEEN /hpf 0-5 [facility] Work Phone: Bilirubin Test strip Ql (U)o n 11-25-2021 Bilirubin Ql (U) Negative Negative [facility] Work Phone: Chlamydia trachomatis rRNA d etection by probe and target amplification methodon 11-25-2021 C. trachomatis rRNA ASHLEY+probe Ql (Unsp spec) Negative Negative [facility] Work Phone: HIV 1 and HIV-2 antibody ass ay with HIV-1 p24 antigen detectionon 11-25-2021 HIV 1+2 Ab+HIV1 p24 Ag IA Ql Non-Reactive Nonreactive [facility] Work Phone: Ketones Test strip Ql (U)on 11-25-2021 Ketones Ql (U) Negative Negative [facility] Work Phone: Laboratory - Microbiology an d Antimicrobial susceptibilityon 11-25-2021 N. gonorrhoeae DNA ASHLEY+probe Ql (Unsp spec) Positive Negative [facility] Work Phone: Comment on above: Performed at: =[address] [id number] Director: Cailin Soto MD, Phone: [phone] Mucus LM Ql (Urine sed)on Mucus Ql (Urine sed) 0 SEEN /hpf [facility] Work Phone: Nitrite Test strip Ql (U)on 11-25-2021 Nitrite Ql (U) Negative Negative [facility] Work Phone: Protein Test strip Ql (U)on 11-25-2021 Protein Ql (U) Negative Negative [facility] Work Phone: Squamous epithelial cells de tection in urine sediment by light microscopyon 11-25-2021 Epithelial cells.squamous LM Ql (Urine sed) 0 SEEN /hpf 0-5 [facility] Work Phone: Urine blood detectionon 11-03 RBC Ql (U) Negative Negative [facility] Work Phone: RBC Ql (U) 0 SEEN /hpf 0-5 [facility] Work Phone: Urine clarityon 11-25-2021 Clarity (U) Clear Clear [facility] Work Phone: Urine color determinationon 11-25-2021 Color (U) Yellow Yellow [facility] Work Phone: Urine glucose detectionon Glucose Ql (U) Normal mg/dl Normal [facility] Work Phone: Urine leukocyte esterase det ection by dipstickon 11-25-2021 Leukocyte esterase Test strip Ql (U) Negative Negative [facility] Work Phone: Urine pHon 11-25-2021 pH (U) 6.5 [pH] 5.0 - 8.0 [facility] Work Phone: Urine sediment bacteria coun t by microscopy (number/high power field)on 11-25-2021 Bacteria LM.HPF (Urine sed) [#/Area] 0 /[HPF] None Seen [facility] Work Phone: Urine specific gravity measu rementon 11-25-2021 Specific gravity (U) [Rel density] 1.015 1.002-1.030 [facility] Work Phone: Urobilinogen Auto test strip Ql (U)on 11-25-2021 Urobilinogen Ql (U) Normal mg/dl Normal [facility] Work Phone: Absolute lymphocyte counton 07-09-2021 Lymphocytes Auto (Unsp spec) [#/Vol] 1.75 10*3/uL 0.83-4.51 [facility] Work Phone: Basophil percentageon 2021 Basophils/100 WBC (Bld) 0.3 % 0-1 [facility] Work Phone: Bilirubin [Mass/Vol] 0.50 mg/dL 0.20-1.00 [facility] Work Phone: Comment on above: For patients on eltr ombopag therapy, use of Dimension [place] TBIL is not recommended. Chloride [Moles/Vol] 104 mmol/L 98-107 [facility] Work Phone: Cholesterol [Mass/Vol] 200 mg/dL <200 [facility] Work Phone: Comment on above: <200 mg/dL Desirable 200-240 mg/dL Borderline >240 mg/dL High Risk Eosinophils/100 WBC (Bld) 1.2 % 0-5 [facility] Work Phone: Glucose [Mass/Vol] 103 mg/dL 74-106 [facility] Work Phone: Comment on above: Fasting Glucose resu lt from 100 to 125 mg/dL suggests IMPAIRED HOMEOSTASIS per A.D.A. criteria. Neutrophils (Bld) [#/Vol] 4.1 10*3/uL 2.0-7.7 [facility] Work Phone: Neutrophils/100 WBC (Bld) 63.3 % 47-70 [facility] Work Phone: Potassium [Moles/Vol] 4.2 mmol/L 3.5-5.1 [facility] Work Phone: Protein [Mass/Vol] 8.6 g/dL 6.4-8.2 [facility] Work Phone: Sodium [Moles/Vol] 135 mmol/L 136-145 [facility] Work Phone: Triglyceride [Mass/Vol] 197 mg/dL [facility] Work Phone: Comment on above: The drugs N-Acetylcy steine and Metamizole may falsely depress this assay.Serum Triglycerides Reference Interval Normal <150 mg/dL Borderline high 150 - 199 mg/dL High 200 - 499 mg/dL Very High > or = 500 mg/dL WBC (Bld) [#/Vol] 6.5 10*3/uL 4.4-11.0 [facility] Work Phone: Blood erythrocytes count (nu mber/volume)on 07-09-2021 RBC (Bld) [#/Vol] 5.19 10*6/uL 4.6-6.2 [facility] Work Phone: Blood hemoglobin measurement (mass/volume)on 07-09-2021 Hemoglobin (Bld) [Mass/Vol] 15.4 g/dL 13.0-16.5 [facility] Work Phone: Blood lymphocytes/100 leukoc yteson 07-09-2021 Lymphocytes/100 WBC (Bld) 27.1 % 19-41 [facility] Work Phone: Blood monocytes/100 leukocyt eson 07-09-2021 Monocytes/100 WBC (Bld) 7.8 % 0-10 [facility] Work Phone: Blood platelet mean volumeon 07-09-2021 Platelet mean volume (Bld) [Entitic vol] 11.0 fL 6.2-12.0 [facility] Work Phone: Determination of erythrocyte mean corpuscular volume (MCV)on 07-09-2021 MCV (RBC) [Entitic vol] 88.4 fL 80-94 [facility] Work Phone: Hematocrit Auto (Bld) [Volum e fraction]on 07-09-2021 Hematocrit (Bld) [Volume fraction] 45.9 % 40-54 [facility] Work Phone: Laboratory - Chemistry and C hemistry - challengeon 07-09-2021 ALP [Catalytic activity/Vol] 67 U/L 45-117 [facility] Work Phone: ALT [Catalytic activity/Vol] 73 U/L 16-61 [facility] Work Phone: CO2 [Moles/Vol] 25.0 mmol/L 21.0-32.0 [facility] Work Phone: Globulin (S) [Mass/Vol] 4.7 g/dL 2.2-4.2 [facility] Work Phone: Urea nitrogen/Creatinine [Mass ratio] 10.8 mg/mg 10-20 [facility] Work Phone: Laboratory - Hematology and Cell countson 07-09-2021 Erythrocyte distribution width (RBC) [Entitic vol] 39.1 fL 35.1-43.9 [facility] Work Phone: Erythrocyte distribution width (RBC) [Ratio] 12.0 % 11.6-14.6 [facility] Work Phone: Immature granulocytes/100 WBC (Bld) 0.300 % 0.0-0.9 [facility] Work Phone: Comment on above: IG% - Immature Granu locytes (promyelocytes, myelocytes and metamyelocytes) > 1% indicates that a LEFT SHIFT is Present. MCH (RBC) [Entitic mass] 29.7 pg 27.0-32.0 [facility] Work Phone: Nucleated RBC/100 WBC (Bld) [Ratio] 0 % 0-5 [facility] Work Phone: MCHC Auto (RBC) [Mass/Vol]on 07-09-2021 MCHC (RBC) [Mass/Vol] 33.6 g/dL 32-36 [facility] Work Phone: No Panel Informationon 07-09 Estimated GFR (MDRD) Amer 100 mL/min >60 [facility] Work Phone: Comment on above: GFR Calc Estimated GFR (MDRD) Non-Af Amer 83 mL/min >60 [facility] Work Phone: Comment on above: Non- GFR Calc Prostate Specific Antigen Screen 0.60 ng/mL 0.00-4.00 [facility] Work Phone: Comment on above: This test was perfor med using the TPSA assay method for [employer] chemistry system. Values obtained with differentassay methods cannot be used interchangably.When changing PSA assays in the course of monitoring apatient, additional sequential testing should be carriedout to confirm baseline values. Thyroid Stimulating Hormone (TSH) 0.82 uIU/mL 0.358-3.74 [facility] Work Phone: Vitamin D 25-Hydroxy 22.4 ng/mL [facility] Work Phone: Comment on above: Vitamin D 25(OH) Sta tus Range Deficiency <20 ng/mL (50nmol/L) Insufficiency 20 - 30 ng/mL (50 - 75 nmol/L) Sufficiency 30 - 100 ng/mL (75 - 250 nmol/L) Toxicity >100 ng/mL (>250 nmol/L) Platelets bldon 07-09-2021 Platelets (Bld) [#/Vol] 284 10*3/uL 150-450 [facility] Work Phone: Serum or plasma albumin myrtle urement (mass/volume)on 07-09-2021 Albumin [Mass/Vol] 3.9 g/dL 3.2-5.0 [facility] Work Phone: Serum or plasma albumin/glob ulin mass ratioon 07-09-2021 Albumin/Globulin [Mass ratio] 0.8 {ratio} 0.9-2.4 [facility] Work Phone: Serum or plasma calcium myrtle urement (mass/volume)on 07-09-2021 Calcium [Mass/Vol] 9.2 mg/dL 8.5-10.1 [facility] Work Phone: Serum or plasma cholesterol in HDL measurement (mass/volume)on 07-09-2021 Cholesterol in HDL [Mass/Vol] 40 mg/dL [facility] Work Phone: Comment on above: The drugs N-Acetylcy steine and Metamizole may falsely depress this assay. Reference Range HDL <40 mg/dL Low HDL Cholesterol HDL >or= 60 mg/dL High HDL Cholesterol Serum or plasma cholesterol in VLDL measurement (mass/volume)on 07-09-2021 Cholesterol in VLDL [Mass/Vol] 39 mg/dL 5-40 [facility] Work Phone: Serum or plasma creatinine m easurement (mass/volume)on 07-09-2021 Creatinine [Mass/Vol] 1.02 mg/dL 0.70-1.30 [facility] Work Phone: Comment on above: The validity of the calculated GFR & GFRAA in patients over 70 years has not been determined. Clinical correlation is essential. Serum or plasma low density lipoprotein (LDL) cholesterol measurement (mass/volume)on 07-09-2021 Cholesterol in LDL [Mass/Vol] 121 mg/dL 0-130 [facility] Work Phone: Serum or plasma urea nitroge n measurement (mass/volume)on 07-09-2021 Urea nitrogen [Mass/Vol] 11 mg/dL 7-18 [facility] Work Phone: Thin prep Papanicolaou smear with manual screeningon 07-09-2021 Thin prep Papanicolaou smear with manual screening 35 U/L 15-37 [facility] Work Phone: Thin prep Papanicolaou smear with manual screening 6 5-15 [facility] Work Phone: Whole blood hemoglobin A1c/t otal hemoglobin ratio (mass fraction)on 07-09-2021 HbA1c (Bld) [Mass fraction] 5.6 % 3.8-5.6 [facility] Work Phone: Comment on above: Normal < 5.7 % Predi abetic 5.7 - 6.4 % Diabetic >or= 6.5 % Please note range changes. Culture, urine Bacteria identified Cx Nom (U) Culture exhibits no growth. [facility] Work Phone: Vital Signs Date Time Vital Sign Value Performing Clinician Faci lity 10-02-2024 08:46-0400 Body height 170.[address] Katya Lara MD Work Phone: [facility] 10-02-2024 08:46-0400 Body mass index (BMI) [Ratio] 33.8 kg/m2 Dr. Katya Lara MD Work Phone: [facility] 10-02-2024 08:46-0400 Body weight 97.[address] Katya Lara MD Work Phone: [facility] 10-02-2024 08:46-0400 Diastolic blood pressure 90 mm[Hg] Dr. Katya Lara MD Work Phone: [facility] 10-02-2024 08:46-0400 Heart rate 79 /min Dr. Katya Lara MD Work Phone: [facility] 10-02-2024 08:46-0400 Respiratory rate 18 /min Dr. Katya Lara MD Work Phone: [facility] 10-02-2024 08:46-0400 SaO2% (BldA) [Mass fraction] 93 % Dr. Katya Lara MD Work Phone: [facility] 10-02-2024 08:46-0400 Systolic blood pressure 133 mm[Hg] Dr. Katya Lara MD Work Phone: [facility] 10-01-2024 08:35-0400 Body height 170.[address] Katya Lara MD Work Phone: [facility] 10-01-2024 08:35-0400 Body mass index (BMI) [Ratio] 34 kg/m2 Dr. Katya Lara MD Work Phone: [facility] 10-01-2024 08:35-0400 Body temperature 98.6 [degF] Dr. Katya Lara MD Work Phone: [facility] 10-01-2024 08:35-0400 Body weight 98.[address] Katya Lara MD Work Phone: [facility] 10-01-2024 08:35-0400 Diastolic blood pressure 84 mm[Hg] Dr. Katya Lara MD Work Phone: [facility] 10-01-2024 08:35-0400 Heart rate 77 /min Dr. Katya Lara MD Work Phone: [facility] 10-01-2024 08:35-0400 Respiratory rate 16 /min Dr. Katya Lara MD Work Phone: [facility] 10-01-2024 08:35-0400 SaO2% (BldA) [Mass fraction] 92 % Dr. Katya Lara MD Work Phone: [facility] 10-01-2024 08:35-0400 Systolic blood pressure 123 mm[Hg] Dr. Katya Lara MD Work Phone: [facility] 11-25-2021 10:54-0400 Body height 170.[address] Katya Lara Work Phone: [facility] Work Phone: 11-25-2021 10:54-0400 Body mass index (BMI) [Ratio] 32 kg/m2 Dr. Katya Lara Work Phone: [facility] Work Phone: 11-25-2021 10:54-0400 Body temperature 97.7 [degF] Dr. Katya Lara Work Phone: [facility] Work Phone: 11-25-2021 10:54-0400 Body weight 92.[address] Katya Lara Work Phone: [facility] Work Phone: 11-25-2021 10:54-0400 Diastolic blood pressure 90 mm[Hg] Dr. Katya Lara Work Phone: [facility] Work Phone: 11-25-2021 10:54-0400 Heart rate 95 /min Dr. Katya Lara Work Phone: [facility] Work Phone: 11-25-2021 10:54-0400 Respiratory rate 18 /min Dr. Katya Lara Work Phone: [facility] Work Phone: 11-25-2021 10:54-0400 SaO2% (BldA) [Mass fraction] 97 % Dr. Katya Lara Work Phone: [facility] Work Phone: 11-25-2021 10:54-0400 Systolic blood pressure 130 mm[Hg] Dr. Katya Lara Work Phone: [facility] Work Phone: 06-16-2021 08:15-0400 Body height 170.[address] Katya Lara Work Phone: [facility] Work Phone: 06-16-2021 08:15-0400 Body mass index (BMI) [Ratio] 32.1 kg/m2 Dr. Katya Lara Work Phone: [facility] Work Phone: 06-16-2021 08:15-0400 Body temperature 94.7 [degF] Dr. Katya Lara Work Phone: [facility] Work Phone: 06-16-2021 08:15-0400 Body weight 92.[address] Katya Lara Work Phone: [facility] Work Phone: 06-16-2021 08:15-0400 Diastolic blood pressure 90 mm[Hg] Dr. Katya Lara Work Phone: [facility] Work Phone: 06-16-2021 08:15-0400 Heart rate 91 /min Dr. Katya Lara Work Phone: [facility] Work Phone: 06-16-2021 08:15-0400 Respiratory rate 16 /min Dr. Katya Lara Work Phone: [facility] Work Phone: 06-16-2021 08:15-0400 SaO2% (BldA) [Mass fraction] 98 % Dr. Katya Lara Work Phone: [facility] Work Phone: 06-16-2021 08:15-0400 Systolic blood pressure 140 mm[Hg] Dr. Katya Lara Work Phone: [facility] Work Phone: Encounters Encounter Date Encounter Type Care Provider Facility Start: 11-05-2024 ambulatory Douglas Vo Facility :[facility] Start: 11-01-2024 ambulatory Katya Lara Facility :[facility] Start: 10-02-2024 Encounter for genera l adult medical examination without abnormal findings Katyaambreen Lara [facility] Start: 10-02-2024 End: 10-02-[address] Douglas Vo MD -[facility] Work Phone: Start: 10-02-2024 End: 10-02-[address] Katya Lara MD Work Phone: -[facility] Start: 10-01-2024 End: 10-01-[address] Katya Lara MD -[facility] Work Phone: Start: 10-01-2024 End: 10-01-[address] Katya Lara MD Work Phone: -[facility] Start: 02-29-2024 End: 02-29-2024 ambulatory Katya Lara Facility:[facility] Start: 11-16-2023 End: 11-16-2023 ambulatory Katya Lara Facility:[facility] Start: 11-25-2021 End: 11-25-[address] Katya Lara Work Phone: [facility] Work Phone: Start: 11-25-2021 End: 11-25-[address] Katya Lara Work Phone: [facility] Start: 07-13-2021 Non-patient / Non-visit Dr. Jessica Lara Work Phone: [facility] Start: 07-13-2021 End: 07-13-[address] Katya Lara Work Phone: [facility] Start: 07-09-2021 End: 07-09-[address] Katya Lara Work Phone: [facility] Start: 07-01-2021 End: 07-01-[address] Katya Lara Work Phone: [facility] Start: 06-16-[address] Aspen Lara Work Phone: [facility] Start: 06-16-2021 End: 06-16-2021 Encounter for general adult medical examination without abnormal findings Dr. Katya Lara Work Phone: [facility] Start: 06-16-2021 End: 06-16-[address] Katya Lara Work Phone: [facility] Procedures Date Procedure Procedure Detail Performing Clinician Start: 07-01-2021 Radiologic examinati on of knee Dr. Katya Lara Work Phone: Urine culture Dr. Katya Smith hner Work Phone: Plan of Treatment Date Care Activity Detail Author Start: 10-01-2024 Evaluation of diagno stic study results [facility] Start: 06-16-2021 Patient referral [facility] Work Phone: CBC W Auto Different ial panel - Blood [facility] Comprehensive metabo lic 1999 panel - Serum or Plasma [facility] Hemoglobin A1c/Hemog lobin.total in Blood [facility] Lipid 1996 panel - Serum or Plasma [facility] Magnesium measurement [facility] Natriuretic peptide. B prohormone N-Terminal [Mass/volume] in Serum or Plasma [facility] Patient referral [facility] Work Phone: Prostate specific an tigen measurement [facility] Stress echocardiography [facility] Thyroid stimulating hormone measurement [facility] Vitamin D, 25-hydroxy measurement [facility] Immunizations Immunization Date Immunization Notes Care Provider Steven hernandez 2020 Covid (Pfizer) Dr. Katya valentine Work Phone: [facility] 10-16-2020 Covid (Pfizer) Dr. Katya valentine Work Phone: [facility] Payers Date Payer Category Payer Self-pay [id number] 2023 Unknown [id number] Unknown [id number] [id number] [id number] Unknown [id number] 2.16.8 [id number] Unknown [id number] 2.16.8 [id number] Unknown [id number] [id number] [id number] Unknown [id number] 2.16.8 [id number] Unknown [id number] 2.16.8 [id number] Unknown [id number] 2.16.8 [id number] Social History Date Type Detail Facility Start: 07-01-2021 End: 11-25-2021 Tobacco smoking status NHIS Unknown if ever smoked [facility] Work Phone: Start: 1970 Sex Assigned At Male [facility] Start: 09-28-2024 End: 10-02-2024 Tobacco smoking status NHIS Never smoked tobacco (finding) [facility] Evaluation note 10-01-2024 Note Date & Type Note Facility 10-01-2024 Evaluation note Diagnosis Onset Date Resolution Abnormal EKG noneactive October 01, 025 8:27am Abnormal EKG acute October 02 8:43am Dyspnea on exertion acute October 02, 2024 8:43am [facility] Work Phone: Evaluation note Note Date & Type Note Facility Evaluation note Diagnosis Onset Date Encounter for wellness examination in adult acute Overweight acute Pain in right knee acute Subaortic stenosis acute Vitamin D deficiency acute Pain in right knee acute [facility] Work Phone: Evaluation note Note Date & Type Note Facility Evaluation note Diagnosis Onset Date Genital warts chronic Penile discharge noneactive Dysuria noneactive Routine screening for STI (s exually transmitted infection) noneactive [facility] Work Phone: Evaluation note Note Date & Type Note Facility Evaluation note No assessment information availa ble [facility] Work Phone: Hospital Discharge instructions Note Date & Type Note Facility Hospital Discharge instructions [facility] Work Phone: Reason for referral (narrative) Note Date & Type Note Facility Reason for referral (narrative) No reason for referral information available [facility] Work Phone: Chief Complaint and Reason for Visit Chief Complaint EST CARE RIGHT KNEE xray MURMUR Reason for Visit [facility]counter for [facility] in adult Overweight Pain in right knee Subaortic stenosis Vitamin D deficiency Pain in right knee Chief Complaint STI Reason for Visit Genital warts Penile discharge Dysuria Routine screening for STI (sexually transmitted infection) Chief Complaint Admit Date Annual/Physical October 01, 2024 8:27 am Chief Complaint Admit Date Annual/Physical October 01, 2024 8:27 am CP on Exertion (Marco) October 02, 2024 8:43am Reason for Visit Admit Date Abnormal EKG October 01, 2024 8:27 am Abnormal EKG October 02, 2024 8:43a m Dyspnea on exertion October 02, 2024 8:43a m Summary Purpose Family History No Family History Records Found Advance Directives No Advanced Directives Records Found Additional Source Comments Goals (unrecognized section and content) Goals may be documented in a n alternate sectionGoals may be documented in an alternate sectionGoals may be documented in an alternate sectionGoals may be documented in an alternate section Care Teams (unrecognized sec tion and content) Team Status: Active Member Role/Relationship Status Dates Dr. Katya Lara MD Primary Care Provider Active Team Status: Inactive Member Role/Relationship Status Dates Dr. Katya Lara MD Primary Care Provider Active Start: October 01, 2024 End: October 01, 2024 Dr. Katya Lara MD Attending Provider Active Start: October 01, 2024 End: October 01, 2024 Team Status: Inactive Member Role/Relationship Status Dates Dr. Katya Lara MD Primary Care Provider Active Start: October 02, 2024 End: October 02, 2024 Dr. Katya Lara MD Referring Provider Active Start: October 02, 2024 End: October 02, 2024 Dr. Douglas Vo MD Attending Provider Active Start: October 02, 2024 End: October 02, 2024 (unrecognized sect ion and content) No Status Records Found INFORMATION SOURCE (unrecogn ized section and content) DATE CREATED AUTHOR 11/03/2024 [facility] FOR RECORDS PERTAINING TO PATIENTS WHO ARE OR HAVE BEEN ENROLLED IN A CHEMICAL DEPENDENCY/SUBSTANCEABUSE PROGRAM, SOME INFORMATION MAY BE OMITTED. This clinical summary was aggregated from multiple sources. Caution should be exercised in using it in the provision of clinical care. This summary normalizes information from multiple sources, and as a consequence, information in this document may materially change the coding, format and clinical context of patient data. In addition, data may be omitted in some cases. CLINICAL DECISIONS SHOULD BE BASED ON THE PRIMARY CLINICAL RECORDS. [employer] provides no warranty or guarantee of the accuracy or completeness of information in this document.
[2024-11-05 13:18] LABS: Hematocrit 41.0 % (40-54); Hemoglobin 14.0 g/dL (13.0-16.5); Immature Granulocytes Count 0.020 X10^3/uL (0.0-0.0); Mean Corp Hgb Conc 34.1 g/dL (32-36); Mean Corpuscular Volume 87.6 fL (80-94); Mean Platelet Vol. 11.5 fl (6.2-12.0); NRBC Flagged by Analyzer 0 % (0-5); Platelet Count 244 K/mm3 (150-450); RBC Distribution Width CV 12.6 % (11.6-14.6); RBC Distribution Width SD 40.3 fl (35.1-43.9); Red Blood Count 4.68 M/mm3 (4.6-6.2); White Blood Count 6.5 K/mm3 (4.4-11.0)
[2024-11-05 13:46] LABS: AST(SGOT) 51 U/L (<=37); Alanine Aminotransfer ALT/SGPT 97 U/L (<=46); Albumin, Serum 4.4 g/dL (3.5-5.0); Alkaline Phosphatase 57 U/L (40-129); Anion Gap 11 (5-15); BUN 18 mg/dL (4-19); BUN/Creat Ratio 18.7 RATIO (10-20); Calcium,Total 9.7 mg/dL (7.6-11.0); Carbon Dioxide 25.0 mmol/L (21.0-32.0); Chloride 102 mmol/L (98-108); Cholesterol 204 mg/dL (<=200); Globulin 3.7 g/dL (2.2-4.2); Glucose 111 mg/dL (70-99); Low Density Lipoprotein Calc. 126 mg/dL; Magnesium 2.1 mg/dL (1.5-2.2); PSA,Total - Annual Screen 0.49 ng/mL (0.02-4.00); Potassium 4.5 mmol/L (3.3-5.1); Pro- Brain NATRIURETIC PEPTIDE 70 pg/mL (<=900); Triglycerides 165 mg/dL; Very Low Density Lipoprotein 33 mg/dL (5-40); Vitamin D,25 Hydroxy 27.4 ng/mL (30-100); cholesterol:hdl ratio screen 4.52
== END | disposition home or self-care (01) ==
PROVIDERS: PCP Internal Medicine; Referring Provider Internal Medicine Cardiovascular Disease; Visit Provider Internal Medicine Cardiovascular Disease
DX: Z00.00 Encounter for general adult medical examination without abnormal findings (principal); R94.31 Abnormal electrocardiogram [ECG] [EKG]; I10 Essential (primary) hypertension; E55.9 Vitamin D deficiency, unspecified; R06.09 Other forms of dyspnea; Z13.220 Encounter for screening for lipoid disorders; R73.9 Hyperglycemia, unspecified; Z12.5 Encounter for screening for malignant neoplasm of prostate
CPT/HCPCS: 36415; 80053; 80061; 82306; 83036; 83735; 83880; 84153; 84443; 85025; 93306; Q9957; A4216; C8929; G0103